=== PATIENT | female | born 1980 | race Caucasian/White ===

== ENCOUNTER 2017-11-07 13:00 | Emergency (ER) | payer SELFPAY ==
[~2017-11-07] VITALS: Ht 165.1 cm; Wt 52.6 kg
[2017-11-07 13:09] VITALS: Ht 165.1 cm; Wt 52.6 kg
[2017-11-07 16:48] LABS: PLATELET COUNT 371 x10^3mcL (130-400); RED CELL DISTRIBUTION WIDTH 13.5 % (11.5-14.5)
[2017-11-07 17:02] LABS: BAND NEUTROPHIL 1 % (0-10); BASOPHIL 0 % (0-2); MONOCYTE 4 % (0-7); SEGMENTED NEUTROPHILS 88 % (37-75); rbc morphology (normal/abnorm) NORMAL (NORMAL)
[2017-11-07 17:23] LABS: ALBUMIN 4.3 g/dL (3.4-5.0); ALKALINE PHOSPHATASE 92 U/L (46-116); ALT/SGPT 36 U/L (14-59); AST/SGOT 20 U/L (15-37); BILIRUBIN TOTAL 1.5 mg/dL (0.20-1.00); CALCIUM 9.3 mg/dL (8.5-10.1); CARBON DIOXIDE 12.4 mmol/L (21-32); CREATININE SERUM 0.9 mg/dL (0.6-1.0); GFR1 > 60 mL/min; GLUCOSE SERUM 250 mg/dL (74-106)
[2017-11-07 17:29] LABS: TOTAL PROTEIN, SERUM 8.9 g/dL (6.4-8.2)
[2017-11-07 17:53] LABS: CHLORIDE SERUM 94 mmol/L (98-107); POTASSIUM SERUM 3.8 mmol/L (3.5-5.1); SODIUM SERUM 132 mmol/L (136-145)
[2017-11-07 18:27] LABS: AMPHETAMINE QUAL UR NONE DETECTED (NEG <=1000)
[2017-11-07 19:53] VITALS: BP 119/71
== END 2017-11-07 19:53 | disposition home or self-care (01) ==
LOC: ED 13:00
PROVIDERS: Emergency Medicine
DX: L03.011 Cellulitis of right finger (principal); R10.30 Lower abdominal pain, unspecified; R11.10 Vomiting, unspecified; D72.829 Elevated white blood cell count, unspecified; E11.9 Type 2 diabetes mellitus without complications
CPT/HCPCS: 82962; 83880; J0696; J2270; J2550; J7030; Q0162